=== PATIENT | male | born 1970 | race Caucasian/White ===

== ENCOUNTER 2018-05-09 00:31 | Emergency (ER) | payer MEDICAID ==
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
[2018-05-09] MEDS: KETOROLAC 15 MG/1 ML SDV IVP ONE (01:20)
[2018-05-09] MEDS: NS 1,000 ML IV ONE (01:21)
[2018-05-09] MEDS ORDERED: OXYCODONE/APAP 5/325 TAB ONE (01:57)
[2018-05-09] MEDS: OXYCODONE/APAP 5/325 TAB PO ONE (02:00)
[2018-05-09] MEDS: OXYCODONE/APAP 5/325MG PREPACK#4 BTL TAKEHOME ONE (03:07)
[2018-05-09 03:12] VITALS: BP 125/82
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
== END 2018-05-09 03:16 | disposition home or self-care (01) ==
PROC: 0HDLXZZ Extraction of Left Lower Leg Skin, External Approach (ICD-10-PCS; principal; 2018-05-09)
PROC: 2W29X4Z Dressing of Left Upper Extremity using Bandage (ICD-10-PCS; principal; 2018-05-09)
DX: T24.292A Burn of second degree of multiple sites of left lower limb, except ankle and foot, initial encounter (principal); T31.0 Burns involving less than 10% of body surface; X16.XXXA Contact with hot heating appliances, radiators and pipes, initial encounter; E86.9 Volume depletion, unspecified
CPT/HCPCS: 96374; J1885; J2270